=== PATIENT | female | born 2000 | race Caucasian/White ===

== ENCOUNTER 2025-06-24 15:05 | Outpatient (CLI) | payer BC, SELFPAY ==
--- NOTE | 2025-06-24 15:00 | CRLHL7_ITS ---
For Patients: As a result of the Cures Act, medical imaging exams and procedure reports are released immediately into your electronic medical record. You may view this report before your referring provider. If you have questions, please contact your health care provider. OB ULTRASOUND INDICATION: Dating. TECHNIQUE: Real time grayscale imaging of the fetus was performed. Transabdominal. LMP: 04/20/2025. VELMA by LMP: 01/25/2026. GA: 9 w, 2 d. Previous US: No. CRL: 2.5 cm. 9 w 2 d. VELMA: 01/25/2026. FHR: 176 BPM. Gestational sac: 3.5 cm. Appears within normal limits. Yolk sac: 4.1 mm. Appears within normal limits. Right ovary: Within normal limits. 5.4 x 2.6 x 3.5 cm. CL. Left ovary: Within normal limits. 3.6 x 0.9 x 2.1 cm. IMPRESSION: 1. Single living intrauterine measuring 9 weeks 2 days with sonographic due date 01/25/2026. 2. Small subchorionic hemorrhage measures 8 x 6 x 11 mm. 3. Corpus luteal cyst right ovary. Camilo Holbrook M.D. Diagnostic Radiologist [email or web address] shah/Dictated by: Camilo Holbrook MD @ 06/24/2025 3:48:00 PM (Electronically Signed)
== END 2025-06-24 15:06 | disposition home or self-care (01) ==
LOC: US 15:06
PROVIDERS: Visit Provider Physician Assistant
DX: O20.9 Hemorrhage in early pregnancy, unspecified (principal); O34.81 Maternal care for other abnormalities of pelvic organs, first trimester; N83.11 Corpus luteum cyst of right ovary; Z3A.09 9 weeks gestation of pregnancy
CPT/HCPCS: 76801

== ENCOUNTER 2025-06-24 16:24 | Outpatient (CLI) | payer BC, SELFPAY ==
[2025-06-24 23:03] LABS: Chlamydia DNA Amplified* NOT DETECTED (No Detected); GC DNA Amplified* NOT DETECTED (No Detected)
== END 2025-06-24 16:25 | disposition home or self-care (01) ==
PROVIDERS: Visit Provider Physician Assistant
DX: O20.9 Hemorrhage in early pregnancy, unspecified (principal); O34.81 Maternal care for other abnormalities of pelvic organs, first trimester; N83.11 Corpus luteum cyst of right ovary; Z3A.09 9 weeks gestation of pregnancy
CPT/HCPCS: 83020; 83021; 85660; 86592; 86703; 86704; 86706; 86762; 86787; 86803; 86850; 86900; 86901; 87086; 87340; 87491; 87591

== ENCOUNTER 2025-09-02 07:03 | Outpatient (CLI) | payer BC, SELFPAY ==
--- NOTE | 2025-09-02 07:15 | CRLHL7_ITS ---
For Patients: As a result of the Century Cures Act, medical imaging exams and procedure reports are released immediately into your electronic medical record. You may view this report before your referring provider. If you have questions, please contact your health care provider. INDICATION: 2nd trimester anatomical survey. Clinical gestational age 19 weeks 2 days TECHNIQUE: Ultrasound OB pelvis transabdominal. Real-time newberry-scale imaging of the fetus was performed as well as color Doppler and spectral Doppler analysis of the umbilical artery. COMPARISON: June 24, 2025 FINDINGS: Sonographic imaging demonstrates a single living intrauterine gestation. Fetus demonstrates a regular cardiac rate of 148 beats per minute. Fetus has a breech orientation. The placenta lies anterior without evidence of placenta previa. Amniotic fluid volume appears normal. MVP: 7.9 cm Cervix: 5.2 cm Biometry: Biparietal diameter: 4.6 cm, 19 weeks 6 days, 73 percent. Head circumference: 16.7 cm, 19 weeks 3 days, 46 percent. Abdominal circumference: 16.0 cm, 21 weeks 1 day, 93 percent. Femoral length: 3.2 cm, 19 weeks 6 days, 67 percent. The composite ultrasound gestational age is calculated at 20 weeks 1 day with an estimated sonographic due date of January 19, 2026. The weight is estimated at 353 grams, the 96 percentile. On anatomic survey, there is a normal appearance of the cerebral ventricles, cisterna magna and cerebellum. The cervical, thoracic and lumbar spines are well visualized and appear normal. There is a normal four-chamber heart and the left ventricular outflow tract appears steve, RVOT not visualized. Normal diaphragm, stomach, kidneys and bladder appear normal. There is a normal three-vessel cord and cord insertion site. Right hand not visualized. Otherwise the extremities appear normal. IMPRESSION: 1. Large for dates with estimated weight at the 96th percentile. 2. Suboptimal visualization of facial profile, orbital view, RVOT and right hand. No morphologic abnormalities are demonstrated. Suggest interval follow-up for morphology not visualized and to assess for growth. Dictated by Janusz Wilkerson MD @ 09/02/2025 9:07:52 AM (Electronically Signed)
== END 2025-09-02 07:04 | disposition home or self-care (01) ==
PROVIDERS: PCP Physician Assistant; Visit Provider Obstetrics & Gynecology
DX: O36.63X0 Maternal care for excessive fetal growth, third trimester, not applicable or unspecified (principal); O35.AXX0 Maternal care for other (suspected) fetal abnormality and damage, fetal facial anomalies, not applicable or unspecified; Z3A.19 19 weeks gestation of pregnancy
CPT/HCPCS: 76805

== ENCOUNTER 2025-09-30 13:25 | Outpatient (CLI) | payer BC, SELFPAY ==
--- NOTE | 2025-09-30 13:31 | CRLHL7_ITS ---
For Patients: As a result of the Cures Act, medical imaging exams and procedure reports are released immediately into your electronic medical record. You may view this report before your referring provider. If you have questions, please contact your health care provider. OBSTETRICAL ULTRASOUND ??? FOLLOW-UP INDICATION: Follow-up on right hand, orbital view, profile and RVOT. CLINICAL HISTORY: LMP: 04/20/2025 VELMA by LMP: 01/25/2026 Gestational Age: 23 weeks 2 days COMPARISON: 09/02/2025 TECHNIQUE: Real-time newberry-scale transabdominal imaging of the fetus was performed. FINDINGS: Fetus: Single Cervix: Not visualized positioning: Multiple Amniotic Fluid: 5.3 cm SDP Placenta technique: Transabdominal Placenta position: Anterior heart rate: 150 bpm IMPRESSION: Normal right hand, orbits, profile and RVOT. CAMILO CAZARES M.D. Diagnostic Radiologist [email or web address] Transcribed: 5:[address]/Dictated by: Camilo Cazares MD @ 09/30/2025 3:51:00 PM (Electronically Signed)
== END 2025-09-30 13:26 | disposition home or self-care (01) ==
PROVIDERS: PCP Physician Assistant; Visit Provider Advanced Practice Midwife
DX: Z36.2 Encounter for other antenatal screening follow-up (principal); Z34.03 Encounter for supervision of normal first pregnancy, third trimester; Z3A.23 23 weeks gestation of pregnancy
CPT/HCPCS: 76816